=== PATIENT | female | born 2000 | race Caucasian/White ===

== ENCOUNTER 2025-08-09 08:44 | Emergency (ER) | payer OTHER, SELFPAY ==
[2025-08-09 08:55] VITALS: BP 126/67; PULSE 73; RESP 16; TEMP 36.6; O2SAT 100
[2025-08-09] MEDS: dexAMETHasone SOD PHOS INJ 10 MG/ML 1 ML VIAL IM (09:19)
--- NOTE | 2025-08-09 09:22 | ED_ITS ---
HPI - Skin/Abscess/Foreign Bdy General Chief complaint: Skin/Abscess/Foreign Body Stated complaint: Cold Sore Time Seen by Provider: 08/09/25 09:02 Source: patient and RN notes reviewed Mode of arrival: ambulatory Limitations: no limitations History of Present Illness HPI narrative: 25-year-old female patient today complaining of herpes simplex infection to her midline upper lip x2 days with tingling to the upper lip for a few days prior. She reports that she has taken 2 doses of Valtrex prescribed by her PCP but now has significant swelling to the lip that continues to worsen. She has tried Abreva and some rubbing alcohol without improvement. She has had outbreaks in the past, usually once or twice a year, but her lip has never swollen like this. Related Data Home Medications ?Medication ?Instructions ?Recorded ?Confirmed ?Last Taken ?Type valacyclovir 1 gram tablet mg 08/09/25 Unknown Histor y Allergies Allergy/AdvReac Type Severity Reaction Status Date / Time No Known Allergies Allergy Verified 08/09/25 09:01 [facility] Comments At time of signature, I have reviewed and agree with nursing past medical, surgical, social and family history unless otherwise noted. Please see nursing chart for further information. There is no relevant family history pertinent to the presenting complaint Exam Narrative: GENERAL: Well-appearing, well-nourished, and in no acute distress. HEAD: Normocephalic, atraumatic. EYES: EOMI. No redness or drainage. Conjunctivae normal. ENT: Mucous membranes pink and moist. Moderately edematous upper lip with clusters of tiny fluid filled blisters spread over the swollen area. Lips is very mildly erythematous. No induration, crusting, or drainage. NECK: Normal AROM. CHEST: No respiratory distress. EXTREMITIES: Normal range of motion. No edema. SKIN: Warm, dry, no rash. Capillary refill normal. Normal skin turgor. NEURO: No focal deficits. Alert and oriented x3. Gait steady. PSYCH: Normal affect. No signs of depression or anxiety. Course Course Level of Care: Express Care Visit Vital Signs Vital signs: Vital Signs Temperature 98 F 08/09/25 08:55 Pulse Rate 73 08/09/25 08:55 Respiratory Rate 16 08/09/25 08:55 Blood Pressure 126/67 08/09/25 08:55 Pulse Oximetry 100 08/09/25 08:55 Oxygen Delivery Room Air 08/09/25 08:55 Temperature 98 F 08/09/25 08:55 Pulse Rate 73 08/09/25 08:55 Respiratory Rate 16 08/09/25 08:55 Blood Pressure 126/67 08/09/25 08:55 Pulse Oximetry 100 08/09/25 08:55 Oxygen Delivery Room Air 08/09/25 08:55 Reviewed MDM - Skin/Abscess/Foreign Bdy MDM Narrative Medical decision making narrative: 25-year-old female patient today complaining of herpes simplex infection to her midline upper lip x2 days with tingling to the upper lip for a few days prior. She reports that she has taken 2 doses of Valtrex prescribed by her PCP but now has significant swelling to the lip that continues to worsen. She has tried Abreva and some rubbing alcohol without improvement. She has had outbreaks in the past, usually once or twice a year, but her lip has never swollen like this. Upon exam,Moderately edematous upper lip with clusters of tiny fluid filled blisters spread over the swollen area. Lips is very mildly erythematous. No induration, crusting, or drainage. Patient will continue her Valtrex prescription until it is gone. She will be treated with an IM dose of dexamethasone to help with the significant swelling of her lip. Short burst of prednisone will also be sent to pharmacy to start tomorrow if needed. She will also be started on a short course Keflex to help with any secondary bacterial infection that may be contributing to the swelling. Patient agrees with plan. Vital signs stable. Anticipatory guidance given. Differential Diagnosis Differential diagnosis: Likely abscess of skin or subcutaneous tissue, cellulitis, impetigo, contact dermatitis and other (Herpes simplex) Critical Care Time Critical Care Time Critical Care Time: No Discharge Plan Discharge Clinical Impression: Herpes simplex Patient Disposition: Home Condition: Stable Instructions: Oral Herpes Infection (ED) Additional Instructions: Please continue your valacyclovir as previously prescribed. Take the Keflex and prednisone as directed. Start the prednisone tomorrow as she received your 1st dose of steroids in an injection here at the [facility]. Follow-up with your PCP in 4-5 days if symptoms are not improving, or sooner if symptoms worsen. Patient Language: [place] Prescriptions: New prednisone 10 mg tablet 30 mg PO DAILY 4 Days Qty: 12 0RF cephalexin 500 mg capsule 500 mg PO Q6H 5 Days Qty: 20 0RF No Action valacyclovir 1 gram tablet Follow-up/Referrals: PHYSICIAN,[employer]AL [employer] [facility] [Primary Care Provider, Internal Medicine] Time of Disposition: 09:21
== END 2025-08-09 09:31 | disposition home or self-care (01) ==
PROVIDERS: Emergency Provider Nurse Practitioner
DX: B00.1 Herpesviral vesicular dermatitis (principal)
CPT/HCPCS: 96372; 99203; G0463; J1100